=== PATIENT | female | born 1970 | race Caucasian/White ===

== ENCOUNTER 2016-12-21 16:48 | Inpatient (IN) | payer SELFPAY ==
[~2016-12-21] VITALS: Ht 162.6 cm; Wt 111.8 kg
[2016-12-21] MEDS ORDERED: FAMOTIDINE 20 MG/2 ML IVP ONE (17:00)
[2016-12-21] MEDS ORDERED: ONDANSETRON 2MG/ML, 2ML IVPush ONE ×2 (17:00→20:30)
[2016-12-21] MEDS ORDERED: SODIUM CHLORIDE FLUSH 10ML SYR IVF ONE (17:00)
[2016-12-21] MEDS ORDERED: FAMOTIDINE 20 MG/2 ML ONE (17:22)
[2016-12-21] MEDS ORDERED: ONDANSETRON 2MG/ML, 2ML ONE (17:22)
[2016-12-21 17:41] LABS: ASPARTATE AMINO TRANSFERASE 21 U/L (15-37); BLOOD UREA NITROGEN 9 mg/dL (7-18)
[2016-12-21 17:54] LABS: DIFF TOTAL CELLS COUNTED 100 CELL DIFF
[2016-12-21 17:55] LABS: VERIFY COUNTS? YES
[2016-12-21 17:56] LABS: ANISOCYTOSIS 2+; HYPOCHROMIA 1+; MICROCYTOSIS 1+; POLYCHROMASIA 2+
[2016-12-21 17:57] LABS: LARGE PLATELETS 1+
[2016-12-21] MEDS ORDERED: OMNIPAQUE 350 MG/ML, 100ML BOTTLE ONE (18:33)
[2016-12-21 19:33] LABS: PATH.CAST-FLAG NOT PRESENT; SPERM-FLAG NOT PRESENT; SRC-FLAG NOT PRESENT; XTAL-FLAG NOT PRESENT; YLC-FLAG NOT PRESENT
[2016-12-21] MEDS ORDERED: MORPHINE SULFATE 4 MG/ML, 1ML ONE (20:10)
[2016-12-21] MEDS ORDERED: FUROSEMIDE 40 MG/4 ML IVPush ONE (20:30)
[2016-12-21] MEDS ORDERED: MORPHINE SULFATE 4 MG/ML, 1ML IVPush PRN (20:30)
[2016-12-21 20:40] LABS: IS PT STATUS REG ER OR PRE ER? YES
[2016-12-21] MEDS ORDERED: ONDANSETRON 2MG/ML, 2ML IVPush PRN (21:30)
[2016-12-21] MEDS ORDERED: TRAZODONE 50MG TABLET PO PRN (21:30)
[2016-12-21] MEDS ORDERED: BISACODYL 10 MG SUPP PR PRN (21:30)
[2016-12-21] MEDS ORDERED: DOCUSATE 100 MG CAPSULE PO PRN (21:30)
[2016-12-21] MEDS ORDERED: POLYETHYLENE GLYCOL 17 GM PACKET PO PRN (21:30)
[2016-12-21] MEDS ORDERED: ACETAMINOPHEN 325 MG TABLET PO PRN (21:30)
[2016-12-21] MEDS ORDERED: LABETALOL 5MG/ML, 20ML IVPush PRN (21:30)
[2016-12-21] MEDS ORDERED: FUROSEMIDE 40 MG/4 ML ONE (21:30)
[2016-12-21] MEDS ORDERED: SODIUM CHLORIDE FLUSH 10ML SYR IVF PRN (21:30)
[2016-12-21] MEDS ORDERED: DM MED (21:45)
[2016-12-21 22:40] VITALS: BP 164/97
[2016-12-22] MEDS: ENOXAPARIN 40 MG/0.4 ML SQ SCH ×2 (00:10→21:03)
[2016-12-22] MEDS: INSULIN REGULAR 100 UNITS/ML, 3ML VIAL SQ-INSULIN SCH ×5 (00:10→21:04)
[2016-12-22 01:24] VITALS: BP 144/84
[2016-12-22 05:10] VITALS: BP 135/78
[2016-12-22] MEDS: CARVEDILOL 3.125 MG TABLET PO SCH ×2 (05:11→18:20)
[2016-12-22 06:26] LABS: ASPARTATE AMINO TRANSFERASE 25 U/L (15-37); BLOOD UREA NITROGEN 8 mg/dL (7-18)
[2016-12-22 07:22] VITALS: BP 123/78
[2016-12-22] MEDS ORDERED: FUROSEMIDE 40 MG/4 ML IV SCH (07:30)
[2016-12-22] MEDS: LISINOPRIL 10 MG TABLET PO SCH (08:14)
[2016-12-22] MEDS: ASPIRIN 81 MG TABLET CHEW PO SCH (08:14)
[2016-12-22] MEDS: FERROUS SULFATE 325 MG TABLET PO SCH ×2 (13:00→18:20)
[2016-12-22 14:17] VITALS: BP 113/70
[2016-12-22] MEDS: FUROSEMIDE 40 MG/4 ML IV SCH (18:19)
[2016-12-22 20:05] VITALS: BP 112/68
[2016-12-22] MEDS: INSULIN DETEMIR 100 UNITS/ML, PEN SQ-INSULIN SCH (21:05)
[2016-12-23 01:08] VITALS: BP 116/73
[2016-12-23 06:07] LABS: BLOOD UREA NITROGEN 11 mg/dL (7-18)
[2016-12-23 06:13] LABS: ASPARTATE AMINO TRANSFERASE 30 U/L (15-37)
[2016-12-23 06:53] VITALS: BP 118/74
[2016-12-23] MEDS: INSULIN REGULAR 100 UNITS/ML, 3ML VIAL SQ-INSULIN SCH ×4 (07:00→21:00)
[2016-12-23] MEDS: ASPIRIN 81 MG TABLET CHEW PO SCH (07:32)
[2016-12-23] MEDS: FUROSEMIDE 40 MG/4 ML IV SCH ×2 (07:32→18:04)
[2016-12-23] MEDS: LISINOPRIL 10 MG TABLET PO SCH (07:32)
[2016-12-23] MEDS: CARVEDILOL 3.125 MG TABLET PO SCH ×2 (07:32→18:03)
[2016-12-23] MEDS: FERROUS SULFATE 325 MG TABLET PO SCH ×3 (07:32→18:03)
[2016-12-23] MEDS: ASCORBIC ACID 500 MG TABLET PO SCH (07:32)
[2016-12-23] MEDS: INSULIN DETEMIR 100 UNITS/ML, PEN SQ-INSULIN SCH ×2 (07:33→22:13)
[2016-12-23 08:13] LABS: ANISOCYTOSIS 2+; HYPOCHROMIA 1+; MICROCYTOSIS 1+; POIKILOCYTOSIS 1+
[2016-12-23 10:23] LABS: ABG COLLECTION SITE RIGHT BRACHIAL
[2016-12-23 11:26] LABS: ABG COLLECTION SITE LEFT RADIAL; COLLATERAL CIRCULATION TESTING NORMAL
[2016-12-23] MEDS ORDERED: DOPAMINE/D5W PMX 250 ML IV PRN (12:00)
[2016-12-23] MEDS ORDERED: ALBUTEROL SULFATE 2.5 MG/3 ML ONE (14:45)
[2016-12-23] MEDS: ALBUTEROL SULFATE 2.5 MG/3 ML NPPB SCH ×2 (14:50→19:02)
[2016-12-23 15:09] LABS: ABG COLLECTION SITE LEFT RADIAL; COLLATERAL CIRCULATION TESTING NORMAL
[2016-12-23 16:42] LABS: ABG COLLECTION SITE RIGHT RADIAL; COLLATERAL CIRCULATION TESTING NORMAL
[2016-12-23] MEDS: ENOXAPARIN 40 MG/0.4 ML SQ SCH (21:57)
[2016-12-23] MEDS ORDERED: LABETALOL 5MG/ML, 20ML IVPush PRN (21:58)
[2016-12-24 04:00] VITALS: BP 105/56
[2016-12-24 04:29] LABS: BLOOD UREA NITROGEN 8 mg/dL (7-18)
[2016-12-24 04:32] LABS: ASPARTATE AMINO TRANSFERASE 22 U/L (15-37)
[2016-12-24] MEDS: CARVEDILOL 3.125 MG TABLET PO SCH ×2 (05:52→17:17)
[2016-12-24] MEDS: INSULIN REGULAR 100 UNITS/ML, 3ML VIAL SQ-INSULIN SCH (06:20)
[2016-12-24 06:54] LABS: ABG COLLECTION SITE LEFT RADIAL; COLLATERAL CIRCULATION TESTING NORMAL
[2016-12-24] MEDS: ALBUTEROL SULFATE 2.5 MG/3 ML NPPB SCH ×4 (07:51→18:59)
[2016-12-24] MEDS: ASPIRIN 81 MG TABLET CHEW PO SCH (09:42)
[2016-12-24] MEDS: ASCORBIC ACID 500 MG TABLET PO SCH (09:42)
[2016-12-24] MEDS: LISINOPRIL 10 MG TABLET PO SCH (09:42)
[2016-12-24] MEDS: FUROSEMIDE 40 MG/4 ML IV SCH ×2 (09:43→17:16)
[2016-12-24] MEDS: INSULIN ASPART 100 UNITS/ML, PEN SQ-INSULIN SCH ×3 (11:00→20:55)
[2016-12-24] MEDS ORDERED: DOCUSATE 100 MG CAPSULE PO PRN (14:30)
[2016-12-24] MEDS: LACTULOSE 20 GM/30 ML UDC PO SCH ×2 (15:05→20:56)
[2016-12-24] MEDS: FERROUS SULFATE 325 MG TABLET PO SCH (17:17)
[2016-12-24] MEDS: ENOXAPARIN 40 MG/0.4 ML SQ SCH (20:56)
[2016-12-25 04:00] VITALS: BP 114/59
[2016-12-25 04:22] LABS: ABG COLLECTION SITE RIGHT BRACHIAL
[2016-12-25 05:51] LABS: ASPARTATE AMINO TRANSFERASE 21 U/L (15-37); BLOOD UREA NITROGEN 10 mg/dL (7-18)
[2016-12-25] MEDS: CARVEDILOL 3.125 MG TABLET PO SCH ×2 (06:08→17:22)
[2016-12-25] MEDS: INSULIN ASPART 100 UNITS/ML, PEN SQ-INSULIN SCH ×4 (07:35→21:35)
[2016-12-25] MEDS: ALBUTEROL SULFATE 2.5 MG/3 ML NPPB SCH ×4 (08:00→19:57)
[2016-12-25] MEDS: POTASSIUM CHLORIDE 20 MEQ TAB.ER.PRT PO SCH ×2 (08:21→17:22)
[2016-12-25] MEDS: ASCORBIC ACID 500 MG TABLET PO SCH (08:21)
[2016-12-25] MEDS: LISINOPRIL 10 MG TABLET PO SCH (08:22)
[2016-12-25] MEDS: FUROSEMIDE 40 MG/4 ML IV SCH ×2 (08:22→17:22)
[2016-12-25] MEDS: LACTULOSE 20 GM/30 ML UDC PO SCH (08:22)
[2016-12-25] MEDS: ASPIRIN 81 MG TABLET CHEW PO SCH (08:22)
[2016-12-25] MEDS: FERROUS SULFATE 325 MG TABLET PO SCH ×2 (08:22→17:22)
[2016-12-25 10:57] LABS: ABG COLLECTION SITE LEFT RADIAL; COLLATERAL CIRCULATION TESTING NORMAL
[2016-12-25] MEDS: ENOXAPARIN 40 MG/0.4 ML SQ SCH (21:37)
[2016-12-26 04:00] VITALS: BP 113/54
[2016-12-26 04:28] LABS: ABG COLLECTION SITE RIGHT RADIAL; COLLATERAL CIRCULATION TESTING NORMAL
[2016-12-26] MEDS: CARVEDILOL 3.125 MG TABLET PO SCH ×2 (06:06→17:31)
[2016-12-26] MEDS: INSULIN ASPART 100 UNITS/ML, PEN SQ-INSULIN SCH ×4 (06:24→21:27)
[2016-12-26] MEDS: ALBUTEROL SULFATE 2.5 MG/3 ML NPPB SCH ×4 (07:45→19:40)
[2016-12-26] MEDS: FERROUS SULFATE 325 MG TABLET PO SCH ×2 (08:32→21:34)
[2016-12-26] MEDS: POTASSIUM CHLORIDE 20 MEQ TAB.ER.PRT PO SCH ×2 (08:33→21:34)
[2016-12-26] MEDS: FUROSEMIDE 40 MG/4 ML IV SCH ×2 (08:33→21:37)
[2016-12-26] MEDS: ASCORBIC ACID 500 MG TABLET PO SCH (08:33)
[2016-12-26] MEDS: LISINOPRIL 10 MG TABLET PO SCH (08:33)
[2016-12-26] MEDS: ASPIRIN 81 MG TABLET CHEW PO SCH (08:33)
[2016-12-26] MEDS ORDERED: PROPYLTHIOURACIL 50 MG TABLET PO SCH (10:00)
[2016-12-26] MEDS ORDERED: CHOLESTYRAMINE 4GM PACKET PO SCH (11:00)
[2016-12-26 12:10] VITALS: BP 131/77
[2016-12-26 17:30] VITALS: BP 137/80
[2016-12-26 19:50] VITALS: BP 136/80
[2016-12-26] MEDS: ENOXAPARIN 40 MG/0.4 ML SQ SCH (21:36)
[2016-12-27 02:04] VITALS: BP 118/70
[2016-12-27] MEDS: CARVEDILOL 3.125 MG TABLET PO SCH ×2 (05:01→17:33)
[2016-12-27 05:26] LABS: BLOOD UREA NITROGEN 7 mg/dL (7-18)
[2016-12-27 05:29] LABS: OCCBLD OBC PASS
[2016-12-27 05:29] LABS: ASPARTATE AMINO TRANSFERASE 26 U/L (15-37)
[2016-12-27] MEDS: ALBUTEROL SULFATE 2.5 MG/3 ML NPPB SCH ×4 (06:55→19:50)
[2016-12-27 07:30] VITALS: BP 117/69
[2016-12-27] MEDS: INSULIN ASPART 100 UNITS/ML, PEN SQ-INSULIN SCH ×4 (07:51→21:09)
[2016-12-27] MEDS: FERROUS SULFATE 325 MG TABLET PO SCH ×2 (07:52→17:33)
[2016-12-27] MEDS: FUROSEMIDE 40 MG/4 ML IV SCH (07:52)
[2016-12-27] MEDS: POTASSIUM CHLORIDE 20 MEQ TAB.ER.PRT PO SCH (07:52)
[2016-12-27] MEDS: ASPIRIN 81 MG TABLET CHEW PO SCH (09:27)
[2016-12-27] MEDS: ASCORBIC ACID 500 MG TABLET PO SCH (09:27)
[2016-12-27] MEDS: LISINOPRIL 10 MG TABLET PO SCH (09:27)
[2016-12-27 13:41] VITALS: BP 119/73
[2016-12-27] MEDS: FUROSEMIDE 40 MG TABLET PO SCH (18:17)
[2016-12-27 19:37] VITALS: BP 120/82
[2016-12-27] MEDS: ENOXAPARIN 40 MG/0.4 ML SQ SCH (21:03)
[2016-12-28 06:32] LABS: BLOOD UREA NITROGEN 10 mg/dL (7-18)
[2016-12-28] MEDS: CARVEDILOL 3.125 MG TABLET PO SCH ×2 (06:34→18:19)
[2016-12-28 06:52] VITALS: BP 125/64
[2016-12-28] MEDS: ALBUTEROL SULFATE 2.5 MG/3 ML NPPB SCH ×4 (07:15→19:12)
[2016-12-28] MEDS: INSULIN ASPART 100 UNITS/ML, PEN SQ-INSULIN SCH ×4 (07:46→21:09)
[2016-12-28] MEDS: FUROSEMIDE 40 MG TABLET PO SCH ×2 (08:01→18:19)
[2016-12-28] MEDS: FERROUS SULFATE 325 MG TABLET PO SCH ×2 (08:01→18:19)
[2016-12-28] MEDS: POTASSIUM CHLORIDE 20 MEQ TAB.ER.PRT PO SCH (08:01)
[2016-12-28] MEDS: ASCORBIC ACID 500 MG TABLET PO SCH (10:05)
[2016-12-28] MEDS: LISINOPRIL 10 MG TABLET PO SCH (10:05)
[2016-12-28] MEDS: ASPIRIN 81 MG TABLET CHEW PO SCH (10:05)
[2016-12-28 19:00] VITALS: BP 125/78
[2016-12-28] MEDS: ENOXAPARIN 40 MG/0.4 ML SQ SCH (20:53)
[2016-12-29 01:05] VITALS: BP 154/88
[2016-12-29] MEDS: CARVEDILOL 3.125 MG TABLET PO SCH ×2 (06:24→17:08)
[2016-12-29] MEDS: ALBUTEROL SULFATE 2.5 MG/3 ML NPPB SCH ×4 (06:50→20:00)
[2016-12-29] MEDS: INSULIN ASPART 100 UNITS/ML, PEN SQ-INSULIN SCH ×4 (07:51→20:25)
[2016-12-29] MEDS: FUROSEMIDE 40 MG TABLET PO SCH (07:51)
[2016-12-29] MEDS: POTASSIUM CHLORIDE 20 MEQ TAB.ER.PRT PO SCH ×2 (07:51→17:09)
[2016-12-29] MEDS: FERROUS SULFATE 325 MG TABLET PO SCH ×2 (07:51→17:09)
[2016-12-29 08:40] VITALS: BP 97/62
[2016-12-29] MEDS: ASPIRIN 81 MG TABLET CHEW PO SCH (09:29)
[2016-12-29] MEDS: LISINOPRIL 10 MG TABLET PO SCH (09:29)
[2016-12-29] MEDS: ASCORBIC ACID 500 MG TABLET PO SCH (09:29)
[2016-12-29 14:15] VITALS: BP 122/75
[2016-12-29 15:10] VITALS: BP 145/83
[2016-12-29 15:37] LABS: BLOOD UREA NITROGEN 9 mg/dL (7-18)
[2016-12-29 16:44] LABS: IS PT STATUS REG ER OR PRE ER? NO
[2016-12-29 20:00] VITALS: BP 126/77
[2016-12-29] MEDS: ENOXAPARIN 40 MG/0.4 ML SQ SCH (20:25)
[2016-12-30 02:00] VITALS: BP 125/82
[2016-12-30] MEDS: CARVEDILOL 3.125 MG TABLET PO SCH (05:37)
[2016-12-30] MEDS: INSULIN ASPART 100 UNITS/ML, PEN SQ-INSULIN SCH ×2 (07:00→12:39)
[2016-12-30 07:45] VITALS: BP 121/72
[2016-12-30] MEDS: ALBUTEROL SULFATE 2.5 MG/3 ML NPPB SCH ×3 (08:10→15:00)
[2016-12-30] MEDS: LISINOPRIL 10 MG TABLET PO SCH (08:28)
[2016-12-30] MEDS: POTASSIUM CHLORIDE 20 MEQ TAB.ER.PRT PO SCH (08:28)
[2016-12-30] MEDS: ASPIRIN 81 MG TABLET CHEW PO SCH (08:28)
[2016-12-30] MEDS: ASCORBIC ACID 500 MG TABLET PO SCH (08:28)
[2016-12-30] MEDS: FERROUS SULFATE 325 MG TABLET PO SCH (08:28)
[2016-12-30] MEDS ORDERED: FUROSEMIDE 40 MG TABLET PO SCH (09:00)
[2016-12-30 13:55] VITALS: BP 132/71
[2016-12-30] MEDS ORDERED: FERR325T20 PO (15:24)
[2016-12-30] MEDS ORDERED: ASPI-515 PO (15:24)
[2016-12-30] MEDS ORDERED: CARV3.1212 PO (15:24)
[2016-12-30] MEDS ORDERED: GLIP5TAB10 PO (15:24)
[2016-12-30] MEDS ORDERED: LISI-167 PO (15:24)
[2016-12-30] MEDS ORDERED: FURO40TA6 PO (15:24)
[2016-12-30] MEDS ORDERED: POTA20TA6 PO (15:24)
[2016-12-30] MEDS ORDERED: ASCO500T6 PO (15:24)
[2016-12-30] MEDS ORDERED: DOCU-30 PO (15:24)
[2016-12-30] MEDS ORDERED: ALBU8.5H3 INH (15:27)
[2016-12-30] MEDS ORDERED: ALBU2.5V NPPB (15:27)
== END 2016-12-30 18:14 | disposition home or self-care (01) | DRG 291 ==
LOC: ED 19:45 → EDIP 21:16 → 5SO 22:24 → CSU 12-23 11:26 → 4NOR 12-26 12:00 → 4EST 12-29 15:29
PROVIDERS: ADMIT Internal Medicine; ATTEND Internal Medicine
PROC: 02HV33Z Insertion of Infusion Device into Superior Vena Cava, Percutaneous Approach (ICD-10-PCS; principal; 2016-12-23)
PROC: B548ZZA Ultrasonography of Superior Vena Cava, Guidance (ICD-10-PCS; 2016-12-23)
PROC: 5A09357 Assistance with Respiratory Ventilation, Less than 24 Consecutive Hours, Continuous Positive Airway Pressure (ICD-10-PCS; 2016-12-23)
DX: I11.0 Hypertensive heart disease with heart failure (principal); J96.21 Acute and chronic respiratory failure with hypoxia; G93.41 Metabolic encephalopathy; J96.22 Acute and chronic respiratory failure with hypercapnia; Z68.43 Body mass index [BMI] 50.0-59.9, adult; E44.0 Moderate protein-calorie malnutrition; J98.11 Atelectasis; E87.3 Alkalosis; I50.30 Unspecified diastolic (congestive) heart failure; E66.01 Morbid (severe) obesity due to excess calories; E88.09 Other disorders of plasma-protein metabolism, not elsewhere classified; K76.0 Fatty (change of) liver, not elsewhere classified; J45.909 Unspecified asthma, uncomplicated; G47.33 Obstructive sleep apnea (adult) (pediatric); D75.1 Secondary polycythemia; D50.9 Iron deficiency anemia, unspecified; E11.65 Type 2 diabetes mellitus with hyperglycemia; Z83.3 Family history of diabetes mellitus; Z87.891 Personal history of nicotine dependence; Z98.891 History of uterine scar from previous surgery
CPT/HCPCS: 36415; 36569; 36600; 70450; 71010; 74177; 76700; 76937; 77001; 80048; 80053; 80061; 81001; 82140; 82272; 82533; 82607; 82728; 82746; 82803; 82962; 83036; 83540; 83550; 83690; 83735; 83880; 84439; 84443; 84466; 84484; 84703; 85025; 85610; 85730; 87081; 87086; 93005; 94640; 94660; 96374; 96375; C8929; J1265; J1650; J1815; J1940; J2405; J7613; Q9967; C1751

== ENCOUNTER 2018-06-29 14:54 | Inpatient (IN) | payer SELFPAY ==
[~2018-06-29] VITALS: Ht 165.1 cm; Wt 98.9 kg
[~2018-06-29 14:54] MED LIST: ALBU2.5V NPPB; ALBU8.5H8 INH; ASCO500T6 PO; ASPI-515 PO; CARV3.1212 PO; DM MED; DOCU-131 PO; FERR325T18 PO; FURO40TA6 PO; GLIP5TAB10 PO; LISI-167 PO; POTA20TA6 PO
[2018-06-29 16:35] LABS: ALBUMIN 2.4 g/dL (3.4-5.0); ANION GAP 5 mmol/L (5-15); CALCIUM 8.2 mg/dL (8.5-10.1); CHLORIDE 104 mmol/L (98-107)
[2018-06-29 16:39] LABS: CREATININE 0.74 mg/dL (0.55-1.02); TROPONIN I < 0.015 ng/mL (0.000-0.045)
[2018-06-29 17:05] LABS: MD YES
[2018-06-29 17:10] LABS: MEAN CORPUSCULAR HEMOGLOBIN 22.1 pg (27.0-34.8); MEAN CORPUSCULAR VOLUME 75.5 fL (80-100); MEAN PLATELET VOLUME 9.4 fL (7.4-10.4); PLATELET COUNT 180 x10^3/uL (130-400)
[2018-06-29 17:15] LABS: MEAN CORPUSCULAR HGB CONC 29.3 g/dL (32.4-35.8)
[2018-06-29 17:18] LABS: ANISOCYTOSIS 1+; LYMPH#(MANUAL) 1.98 x10^3/uL (1-3.4); LYMPHS% (MANUAL) 31 % (22-44); MONOS#(MANUAL) 0.64 x10^3/uL (0.3-2.7); MONOS% (MANUAL) 10 % (2-9); SEG#(MANUAL) 3.78 x10^3/uL (1.8-6.8); SEGS% (MANUAL) 59 % (42-75)
[2018-06-29 17:19] LABS: <PLATELET ESTIMATE> ADEQUATE; GIANT PLATELETS 1+; LARGE PLATELETS 2+; POLYCHROMASIA 1+
[2018-06-29] MEDS ORDERED: OMNIPAQUE 350 MG/ML, 100ML BOTTLE ONE (17:49)
[2018-06-29] MEDS ORDERED: FLUT9.9S NAS (19:24)
[2018-06-29] MEDS ORDERED: METF-163 PO (19:24)
[2018-06-29] MEDS ORDERED: LINA5TAB PO (19:24)
[2018-06-29] MEDS ORDERED: FUROSEMIDE 40 MG/4 ML IVPush ONE (19:30)
[2018-06-29] MEDS ORDERED: FUROSEMIDE 40 MG/4 ML ONE (19:54)
[2018-06-29] MEDS ORDERED: ONDANSETRON 2MG/ML, 2ML IVPush PRN (20:30)
[2018-06-29] MEDS ORDERED: GUAIFENESIN/DM 200-20MG, 10ML UDC PO PRN (20:30)
[2018-06-29] MEDS ORDERED: TEMAZEPAM 15 MG CAPSULE PO PRN (20:30)
[2018-06-29] MEDS ORDERED: DEXTROSE 4 GM TAB.CHEW PO PRN (20:30)
[2018-06-29] MEDS ORDERED: ACETAMINOPHEN 325 MG TABLET PO PRN (20:30)
[2018-06-29] MEDS ORDERED: NITROGLYCERIN 0.4 MG BOTTLE (25 TABS) SL PRN (20:30)
[2018-06-29] MEDS ORDERED: GLUCAGON 1 MG IM PRN (20:30)
[2018-06-29] MEDS ORDERED: DOCUSATE 100 MG CAPSULE PO PRN (20:30)
[2018-06-29] MEDS ORDERED: ONDANSETRON ODT 4 MG PO PRN (20:30)
[2018-06-29] MEDS ORDERED: morphine SULFATE 10 MG/ML, 1ML IVPush PRN (20:30)
[2018-06-29] MEDS ORDERED: DEXTROSE 50%, 50ML SYRINGE IVPush PRN (20:30)
[2018-06-29] MEDS ORDERED: LABETALOL 5MG/ML, 20ML IVPush PRN (20:30)
[2018-06-29] MEDS ORDERED: LABETALOL 20 MG/4 ML ONE (20:40)
[2018-06-29 20:55] LABS: HEMOGLOBIN A1C 8.5 % (4.2-6.3)
[2018-06-29] MEDS: INSULIN LISPRO 100 UNITS/ML, PEN SQ-INSULIN SCH (21:00)
[2018-06-29 21:09] LABS: TROPONIN I < 0.015 ng/mL (0.000-0.045)
[2018-06-29] MEDS ORDERED: METOPROLOL TARTRATE 50 MG TABLET ONE (21:23)
[2018-06-29] MEDS: METOPROLOL TARTRATE 50 MG TABLET PO SCH (21:24)
[2018-06-29 22:25] VITALS: BP 182/107
[2018-06-29] MEDS: ATORVASTATIN 40 MG TABLET PO SCH (23:17)
[2018-06-29] MEDS: ENOXAPARIN 40 MG/0.4 ML SQ SCH (23:17)
[2018-06-29] MEDS: LOSARTAN 50MG TABLET PO SCH (23:17)
[2018-06-29] MEDS: POTASSIUM CHLORIDE 20 MEQ TAB.ER.PRT PO SCH (23:17)
[2018-06-29] MEDS: FAMOTIDINE 20 MG TABLET PO SCH (23:17)
[2018-06-29] MEDS: SODIUM CHLORIDE FLUSH 10ML SYR IVF SCH (23:18)
[2018-06-30 00:11] VITALS: BP 161/93
[2018-06-30] MEDS: FUROSEMIDE 40 MG/4 ML IV SCH ×5 (00:11→21:11)
[2018-06-30 00:50] VITALS: BP 139/82
[2018-06-30 02:57] LABS: TROPONIN I < 0.015 ng/mL (0.000-0.045)
[2018-06-30 03:00] LABS: MEAN CORPUSCULAR HEMOGLOBIN 21.6 pg (27.0-34.8); MEAN CORPUSCULAR VOLUME 75.6 fL (80-100); MEAN PLATELET VOLUME 10.8 fL (7.4-10.4); PLATELET COUNT 162 x10^3/uL (130-400); RED CELL DISTRIBUTION WIDTH 24.8 % (9.6-15.2)
[2018-06-30 03:18] LABS: BASOPHILS # (AUTO) 0.04 x10^3/uL (0-0.1); BASOPHILS % (AUTO) 1 % (0-1); EOSINOPHILS # (AUTO) 0.06 x10^3/uL (0-0.4); EOSINOPHILS % (AUTO) 1 % (1-7); LYMPHOCYTES # (AUTO) 1.83 x10^3/uL (1-3.4); LYMPHOCYTES % (AUTO) 25 % (22-44); MD SCAN; MONOCYTES % (AUTO) 7 % (2-9); NEUTROPHILS # (AUTO) 4.95 x10^3/uL (1.8-6.8); NEUTROPHILS % (AUTO) 67 % (42-75)
[2018-06-30 03:46] LABS: ALANINE AMINOTRANSFERASE 18 U/L (12-78); ALBUMIN 2.5 g/dL (3.4-5.0); ANION GAP 6 mmol/L (5-15); CALCIUM 8.7 mg/dL (8.5-10.1); CHLORIDE 102 mmol/L (98-107); CREATININE 0.73 mg/dL (0.55-1.02)
[2018-06-30 03:50] LABS: ALKALINE PHOSPHATASE 152 U/L (45-117); BILIRUBIN,TOTAL 1.5 mg/dL (0.2-1.0); CHOL/HDL RATIO 3.7; CHOLESTEROL, TOTAL 140 mg/dL (140-239); HDL CHOL % 27 % (28-40); HDL CHOLESTEROL (DIRECT) 38 mg/dL (40-60); LDL CHOLESTEROL,CALCULATED 81 mg/dL (54-169); LDL/HDL RATIO 2.1 (0.5-3.0); TOTAL PROTEIN 6.9 g/dL (6.4-8.2); TRIGLYCERIDES 106 mg/dL (50-200); VLDL CHOLESTEROL 21 mg/dL (0-25)
[2018-06-30 04:32] VITALS: BP 138/77
[2018-06-30 05:39] LABS: MEAN CORPUSCULAR HGB CONC 24.8 g/dL (32.4-35.8); RED BLOOD COUNT 8.65 x10^6/uL (3.82-5.3)
[2018-06-30] MEDS: ASPIRIN 325 MG TABLET EC PO SCH (06:17)
[2018-06-30] MEDS: INSULIN LISPRO 100 UNITS/ML, PEN SQ-INSULIN SCH ×4 (07:26→21:00)
[2018-06-30 08:22] VITALS: BP 127/77
[2018-06-30] MEDS: METOPROLOL TARTRATE 50 MG TABLET PO SCH (09:17)
[2018-06-30] MEDS: SPIRONOLACTONE 25 MG TABLET PO SCH (09:17)
[2018-06-30] MEDS: POTASSIUM CHLORIDE 20 MEQ TAB.ER.PRT PO SCH ×2 (09:17→16:11)
[2018-06-30] MEDS: FAMOTIDINE 20 MG TABLET PO SCH ×2 (09:17→21:14)
[2018-06-30] MEDS: LOSARTAN 50MG TABLET PO SCH (09:17)
[2018-06-30] MEDS: SODIUM CHLORIDE FLUSH 10ML SYR IVF SCH ×2 (09:18→21:00)
[2018-06-30] MEDS ORDERED: MAGNESIUM SULFATE PMX 2GM/50ML 50 ML IV ONE (12:00)
[2018-06-30] MEDS: ENALAPRILAT 1.25 MG/ML, 2ML IVPush PRN ×2 (16:07→21:13)
[2018-06-30] MEDS: METOPROLOL TARTRATE 25 MG TABLET PO SCH (21:00)
[2018-06-30] MEDS: ENOXAPARIN 40 MG/0.4 ML SQ SCH (21:10)
[2018-06-30] MEDS: ATORVASTATIN 40 MG TABLET PO SCH (21:14)
[2018-07-01 04:59] LABS: ANION GAP 6 mmol/L (5-15); CALCIUM 7.9 mg/dL (8.5-10.1); CHLORIDE 98 mmol/L (98-107); CREATININE 0.64 mg/dL (0.55-1.02)
[2018-07-01 05:00] VITALS: BP 127/61
[2018-07-01 05:12] LABS: MEAN CORPUSCULAR HEMOGLOBIN 21.9 pg (27.0-34.8); MEAN CORPUSCULAR VOLUME 74.7 fL (80-100); MEAN PLATELET VOLUME 10.6 fL (7.4-10.4); PLATELET COUNT 169 x10^3/uL (130-400)
[2018-07-01] MEDS: ASPIRIN 325 MG TABLET EC PO SCH (05:30)
[2018-07-01 05:49] LABS: MEAN CORPUSCULAR HGB CONC 29.3 g/dL (32.4-35.8); RED BLOOD COUNT 8.18 x10^6/uL (3.82-5.3)
[2018-07-01 06:27] LABS: BASOPHILS # (AUTO) 0.03 x10^3/uL (0-0.1); BASOPHILS % (AUTO) 1 % (0-1); EOSINOPHILS # (AUTO) 0.07 x10^3/uL (0-0.4); EOSINOPHILS % (AUTO) 1 % (1-7); LYMPHOCYTES % (AUTO) 22 % (22-44); MD SCAN; MONOCYTES # (AUTO) 0.58 x10^3/uL (0.2-0.8); MONOCYTES % (AUTO) 9 % (2-9); NEUTROPHILS # (AUTO) 4.22 x10^3/uL (1.8-6.8); NEUTROPHILS % (AUTO) 67 % (42-75)
[2018-07-01] MEDS: INSULIN LISPRO 100 UNITS/ML, PEN SQ-INSULIN SCH ×4 (07:00→20:43)
[2018-07-01] MEDS: FUROSEMIDE 40 MG/4 ML IV SCH ×3 (10:13→20:21)
[2018-07-01] MEDS: POTASSIUM CHLORIDE 20 MEQ TAB.ER.PRT PO SCH ×2 (10:13→16:58)
[2018-07-01] MEDS: SODIUM CHLORIDE FLUSH 10ML SYR IVF SCH ×2 (10:13→20:42)
[2018-07-01] MEDS: SPIRONOLACTONE 25 MG TABLET PO SCH (10:14)
[2018-07-01] MEDS: FAMOTIDINE 20 MG TABLET PO SCH ×2 (10:14→20:22)
[2018-07-01] MEDS: METOPROLOL TARTRATE 25 MG TABLET PO SCH ×2 (10:14→20:22)
[2018-07-01] MEDS: LOSARTAN 50MG TABLET PO SCH (10:14)
[2018-07-01] MEDS: ENALAPRILAT 1.25 MG/ML, 2ML IVPush PRN (20:16)
[2018-07-01] MEDS: ENOXAPARIN 40 MG/0.4 ML SQ SCH (20:21)
[2018-07-01] MEDS: ATORVASTATIN 40 MG TABLET PO SCH (20:22)
[2018-07-02 04:00] VITALS: BP 148/70
[2018-07-02] MEDS: ENALAPRILAT 1.25 MG/ML, 2ML IVPush PRN (04:02)
[2018-07-02 04:30] LABS: MEAN CORPUSCULAR HEMOGLOBIN 21.8 pg (27.0-34.8); MEAN CORPUSCULAR VOLUME 75.7 fL (80-100); MEAN PLATELET VOLUME 10.8 fL (7.4-10.4); PLATELET COUNT 169 x10^3/uL (130-400); RED CELL DISTRIBUTION WIDTH 23.7 % (9.6-15.2)
[2018-07-02 04:34] LABS: ALANINE AMINOTRANSFERASE 14 U/L (12-78); ALBUMIN 2.4 g/dL (3.4-5.0); ANION GAP 5 mmol/L (5-15); CALCIUM 8.1 mg/dL (8.5-10.1); CHLORIDE 100 mmol/L (98-107); CREATININE 0.69 mg/dL (0.55-1.02)
[2018-07-02 04:36] LABS: ALKALINE PHOSPHATASE 133 U/L (45-117); BILIRUBIN,TOTAL 1.5 mg/dL (0.2-1.0); TOTAL PROTEIN 6.5 g/dL (6.4-8.2)
[2018-07-02 04:43] LABS: MEAN CORPUSCULAR HGB CONC 28.8 g/dL (32.4-35.8); RED BLOOD COUNT 8.37 x10^6/uL (3.82-5.3)
[2018-07-02 04:53] LABS: BASOPHILS # (AUTO) 0.02 x10^3/uL (0-0.1); BASOPHILS % (AUTO) 0 % (0-1); EOSINOPHILS % (AUTO) 2 % (1-7); LYMPHOCYTES # (AUTO) 1.89 x10^3/uL (1-3.4); LYMPHOCYTES % (AUTO) 31 % (22-44); MD SCAN; MONOCYTES % (AUTO) 10 % (2-9); NEUTROPHILS # (AUTO) 3.54 x10^3/uL (1.8-6.8); NEUTROPHILS % (AUTO) 58 % (42-75)
[2018-07-02] MEDS: ASPIRIN 325 MG TABLET EC PO SCH (06:00)
[2018-07-02] MEDS: INSULIN LISPRO 100 UNITS/ML, PEN SQ-INSULIN SCH ×4 (07:00→21:27)
[2018-07-02] MEDS: SODIUM CHLORIDE FLUSH 10ML SYR IVF SCH ×2 (08:18→21:11)
[2018-07-02] MEDS: METOPROLOL TARTRATE 25 MG TABLET PO SCH ×2 (08:19→21:11)
[2018-07-02] MEDS: LOSARTAN 50MG TABLET PO SCH (08:19)
[2018-07-02] MEDS: SPIRONOLACTONE 25 MG TABLET PO SCH (08:19)
[2018-07-02] MEDS: FAMOTIDINE 20 MG TABLET PO SCH ×2 (08:19→21:11)
[2018-07-02] MEDS: POTASSIUM CHLORIDE 20 MEQ TAB.ER.PRT PO SCH ×2 (08:19→17:19)
[2018-07-02] MEDS: FUROSEMIDE 40 MG/4 ML IV SCH ×3 (08:19→21:10)
[2018-07-02 19:38] VITALS: BP 128/77
[2018-07-02] MEDS: ENOXAPARIN 40 MG/0.4 ML SQ SCH (21:10)
[2018-07-02] MEDS: ATORVASTATIN 40 MG TABLET PO SCH (21:11)
[2018-07-03 01:45] VITALS: BP 133/79
[2018-07-03 04:58] VITALS: BP 131/75
[2018-07-03] MEDS: ASPIRIN 325 MG TABLET EC PO SCH (05:57)
[2018-07-03 06:12] LABS: CHLORIDE 98 mmol/L (98-107)
[2018-07-03 06:21] LABS: ALANINE AMINOTRANSFERASE 22 U/L (12-78); ALBUMIN 2.8 g/dL (3.4-5.0); ALKALINE PHOSPHATASE 166 U/L (45-117); ANION GAP 7 mmol/L (5-15); BILIRUBIN,TOTAL 1.8 mg/dL (0.2-1.0); CALCIUM 8.7 mg/dL (8.5-10.1); CREATININE 0.79 mg/dL (0.55-1.02)
[2018-07-03 06:43] VITALS: BP 147/94
[2018-07-03] MEDS: INSULIN LISPRO 100 UNITS/ML, PEN SQ-INSULIN SCH ×4 (07:00→19:45)
[2018-07-03 07:25] LABS: MEAN CORPUSCULAR HEMOGLOBIN 21.7 pg (27.0-34.8); MEAN CORPUSCULAR VOLUME 75.2 fL (80-100); MEAN PLATELET VOLUME 10.6 fL (7.4-10.4); PLATELET COUNT 159 x10^3/uL (130-400); RED CELL DISTRIBUTION WIDTH 22.8 % (9.6-15.2)
[2018-07-03 07:27] LABS: BASOPHILS # (AUTO) 0.03 x10^3/uL (0-0.1); BASOPHILS % (AUTO) 1 % (0-1); EOSINOPHILS # (AUTO) 0.08 x10^3/uL (0-0.4); EOSINOPHILS % (AUTO) 1 % (1-7); LYMPHOCYTES # (AUTO) 1.74 x10^3/uL (1-3.4); LYMPHOCYTES % (AUTO) 30 % (22-44); MD SCAN; MONOCYTES # (AUTO) 0.59 x10^3/uL (0.2-0.8); MONOCYTES % (AUTO) 10 % (2-9); NEUTROPHILS % (AUTO) 58 % (42-75)
[2018-07-03 07:35] LABS: MEAN CORPUSCULAR HGB CONC 28.9 g/dL (32.4-35.8); RED BLOOD COUNT 8.79 x10^6/uL (3.82-5.3)
[2018-07-03] MEDS: POTASSIUM CHLORIDE 20 MEQ TAB.ER.PRT PO SCH ×2 (09:17→17:00)
[2018-07-03] MEDS: LOSARTAN 50MG TABLET PO SCH (09:17)
[2018-07-03] MEDS: METOPROLOL TARTRATE 25 MG TABLET PO SCH ×2 (09:17→19:39)
[2018-07-03] MEDS: SPIRONOLACTONE 25 MG TABLET PO SCH (09:17)
[2018-07-03] MEDS: FAMOTIDINE 20 MG TABLET PO SCH ×2 (09:17→19:39)
[2018-07-03] MEDS: FUROSEMIDE 40 MG/4 ML IV SCH ×2 (09:17→17:12)
[2018-07-03] MEDS: SODIUM CHLORIDE FLUSH 10ML SYR IVF SCH ×2 (09:18→19:39)
[2018-07-03 12:10] VITALS: BP 132/74
[2018-07-03 19:25] VITALS: BP 124/84
[2018-07-03] MEDS: ENOXAPARIN 40 MG/0.4 ML SQ SCH (19:39)
[2018-07-03] MEDS: ATORVASTATIN 40 MG TABLET PO SCH (19:39)
[2018-07-04 01:56] VITALS: BP 156/90
[2018-07-04] MEDS: ASPIRIN 325 MG TABLET EC PO SCH (05:28)
[2018-07-04 06:19] LABS: ALBUMIN 2.6 g/dL (3.4-5.0); ANION GAP 9 mmol/L (5-15); CALCIUM 8.3 mg/dL (8.5-10.1); CHLORIDE 100 mmol/L (98-107)
[2018-07-04 06:23] LABS: ALANINE AMINOTRANSFERASE 27 U/L (12-78); ALKALINE PHOSPHATASE 152 U/L (45-117); BILIRUBIN,TOTAL 1.5 mg/dL (0.2-1.0); CREATININE 0.64 mg/dL (0.55-1.02); TOTAL PROTEIN 7.4 g/dL (6.4-8.2)
[2018-07-04 06:47] LABS: MEAN CORPUSCULAR HEMOGLOBIN 21.8 pg (27.0-34.8); MEAN CORPUSCULAR VOLUME 75.8 fL (80-100); MEAN PLATELET VOLUME 11.6 fL (7.4-10.4); PLATELET COUNT 177 x10^3/uL (130-400); RED CELL DISTRIBUTION WIDTH 23.4 % (9.6-15.2)
[2018-07-04 06:51] LABS: MEAN CORPUSCULAR HGB CONC 28.8 g/dL (32.4-35.8); RED BLOOD COUNT 9.24 x10^6/uL (3.82-5.3)
[2018-07-04] MEDS: INSULIN LISPRO 100 UNITS/ML, PEN SQ-INSULIN SCH ×4 (07:00→19:57)
[2018-07-04] MEDS ORDERED: FUROSEMIDE 40 MG/4 ML IV SCH (07:30)
[2018-07-04 07:31] VITALS: BP 124/67
[2018-07-04] MEDS: POTASSIUM CHLORIDE 20 MEQ TAB.ER.PRT PO SCH (07:54)
[2018-07-04] MEDS: FAMOTIDINE 20 MG TABLET PO SCH ×2 (07:54→19:48)
[2018-07-04] MEDS: LOSARTAN 50MG TABLET PO SCH (07:55)
[2018-07-04] MEDS: METOPROLOL TARTRATE 25 MG TABLET PO SCH ×2 (07:55→19:48)
[2018-07-04] MEDS: SODIUM CHLORIDE FLUSH 10ML SYR IVF SCH ×2 (07:55→19:58)
[2018-07-04] MEDS: SPIRONOLACTONE 25 MG TABLET PO SCH (07:57)
[2018-07-04 08:13] LABS: MD MORPH REVIEW ONLY
[2018-07-04 08:14] LABS: <PLATELET ESTIMATE> ADEQUATE; ANISOCYTOSIS 1+; BASOPHILS # (AUTO) 0.02 x10^3/uL (0-0.1); BASOPHILS % (AUTO) 0 % (0-1); EOSINOPHILS # (AUTO) 0.11 x10^3/uL (0-0.4); EOSINOPHILS % (AUTO) 2 % (1-7); GIANT PLATELETS 1+; LARGE PLATELETS 1+; LYMPHOCYTES # (AUTO) 1.38 x10^3/uL (1-3.4); LYMPHOCYTES % (AUTO) 22 % (22-44); MICROCYTOSIS 1+; MONOCYTES # (AUTO) 0.69 x10^3/uL (0.2-0.8); MONOCYTES % (AUTO) 11 % (2-9); NEUTROPHILS # (AUTO) 4.22 x10^3/uL (1.8-6.8); NEUTROPHILS % (AUTO) 66 % (42-75)
[2018-07-04 13:10] VITALS: BP 130/72
[2018-07-04] MEDS: FUROSEMIDE 40 MG TABLET PO SCH (17:24)
[2018-07-04 19:20] VITALS: BP 116/75
[2018-07-04] MEDS: ENOXAPARIN 40 MG/0.4 ML SQ SCH (19:48)
[2018-07-04] MEDS: ATORVASTATIN 40 MG TABLET PO SCH (19:48)
[2018-07-05 01:53] VITALS: BP 116/78
[2018-07-05] MEDS: ASPIRIN 325 MG TABLET EC PO SCH (05:39)
[2018-07-05] MEDS: INSULIN LISPRO 100 UNITS/ML, PEN SQ-INSULIN SCH ×3 (08:05→17:29)
[2018-07-05 08:16] VITALS: BP 123/80
[2018-07-05] MEDS ORDERED: SPIR25TA PO (09:44)
[2018-07-05] MEDS ORDERED: METO25TA35 PO (09:44)
[2018-07-05] MEDS ORDERED: ATOR40TA78 PO (09:44)
[2018-07-05] MEDS ORDERED: ASPI-650 PO (09:44)
[2018-07-05] MEDS ORDERED: FAMO20TA7 PO (09:44)
[2018-07-05] MEDS ORDERED: LOSA50TA2 PO (09:44)
[2018-07-05] MEDS: SPIRONOLACTONE 25 MG TABLET PO SCH (09:55)
[2018-07-05] MEDS: LOSARTAN 50MG TABLET PO SCH (09:55)
[2018-07-05] MEDS: POTASSIUM CHLORIDE 20 MEQ TAB.ER.PRT PO SCH (09:55)
[2018-07-05] MEDS: FAMOTIDINE 20 MG TABLET PO SCH (09:56)
[2018-07-05] MEDS: FUROSEMIDE 40 MG TABLET PO SCH ×2 (09:56→17:29)
[2018-07-05] MEDS: METOPROLOL TARTRATE 25 MG TABLET PO SCH (09:56)
[2018-07-05] MEDS: SODIUM CHLORIDE FLUSH 10ML SYR IVF SCH (09:58)
[2018-07-05 13:48] VITALS: BP_SYST 111; BP_SYST 99; BP_DIAS 58; BP_DIAS 59
== END 2018-07-05 17:56 | disposition home or self-care (01) | DRG 291 ==
LOC: ED 18:05 → EDIP 20:02 → 5SO 22:03 → CCU 06-30 12:02 → 5SO 07-02 10:26
PROVIDERS: ADMIT Internal Medicine; ATTEND Internal Medicine
PROC: 5A09357 Assistance with Respiratory Ventilation, Less than 24 Consecutive Hours, Continuous Positive Airway Pressure (ICD-10-PCS; principal; 2018-07-01)
PROC: 5A09357 Assistance with Respiratory Ventilation, Less than 24 Consecutive Hours, Continuous Positive Airway Pressure (ICD-10-PCS; 2018-07-02)
PROC: 5A09357 Assistance with Respiratory Ventilation, Less than 24 Consecutive Hours, Continuous Positive Airway Pressure (ICD-10-PCS; 2018-07-03)
PROC: 5A09357 Assistance with Respiratory Ventilation, Less than 24 Consecutive Hours, Continuous Positive Airway Pressure (ICD-10-PCS; 2018-07-04)
DX: I11.0 Hypertensive heart disease with heart failure (principal); J96.21 Acute and chronic respiratory failure with hypoxia; J96.22 Acute and chronic respiratory failure with hypercapnia; E66.2 Morbid (severe) obesity with alveolar hypoventilation; E87.2 Acidosis; G93.40 Encephalopathy, unspecified; D75.1 Secondary polycythemia; I50.33 Acute on chronic diastolic (congestive) heart failure; E11.9 Type 2 diabetes mellitus without complications; Z68.36 Body mass index [BMI] 36.0-36.9, adult; G47.33 Obstructive sleep apnea (adult) (pediatric); I16.0 Hypertensive urgency; Z91.14 Patient's other noncompliance with medication regimen; Z23 Encounter for immunization
CPT/HCPCS: 36415; 36600; 71045; 71046; 71275; 80048; 80053; 80061; 82040; 82803; 82962; 83036; 83605; 83735; 83880; 84100; 84145; 84484; 85025; 87040; 87081; 90656; 93005; 93306; 94660; 96374; 96375; G0378; J1650; J1940; Q9967; J1815; J3475

== ENCOUNTER 2019-07-05 12:42 | Inpatient (IN) | payer SELFPAY ==
[~2019-07-05] VITALS: Ht 162.6 cm; Wt 108.0 kg
[~2019-07-05 12:42] MED LIST changes: +ASPI-650 PO; +ATOR40TA78 PO; +CARV3.122 PO; +FAMO20TA7 PO; +FLUT9.9S NAS; +GUAI200T37 PO; +LINA5TAB PO; +LOSA50TA2 PO; +METF-163 PO; +METO25TA35 PO; +POTA20TA89 PO; +SPIR25TA PO; +TIOT18CA INH
--- NOTE | 2019-07-05 13:24 | NUR ---
PT CAME CO SOB, DIZZY, VOMITTING. FEEL DIZZY WHEN SHE STANDS UP. PT IS HOOKD UP TO FLOOR LAYER TILE AND IS ON 5L O2 VIA NASAL CANULLA. PT IS IN HOSPITAL BED. CALL LIGHT WITHIN REACH.
[2019-07-05 13:58] LABS: MEAN CORPUSCULAR HEMOGLOBIN 29.3 pg (27.0-34.8); MEAN CORPUSCULAR VOLUME 94.7 fL (80-100); MEAN PLATELET VOLUME 9.6 fL (7.4-10.4); PLATELET COUNT 170 x10^3/uL (130-400); RED BLOOD COUNT 7.21 x10^6/uL (3.82-5.3)
[2019-07-05 14:05] LABS: BASOPHILS # (AUTO) 0.04 x10^3/uL (0-0.1); BASOPHILS % (AUTO) 0 % (0-1); EOSINOPHILS % (AUTO) 1 % (1-7); LYMPHOCYTES # (AUTO) 1.71 x10^3/uL (1-3.4); LYMPHOCYTES % (AUTO) 12 % (22-44); MD NO; MONOCYTES # (AUTO) 1.03 x10^3/uL (0.2-0.8); MONOCYTES % (AUTO) 7 % (2-9); NEUTROPHILS # (AUTO) 11.38 x10^3/uL (1.8-6.8); NEUTROPHILS % (AUTO) 80 % (42-75)
[2019-07-05 14:07] LABS: ALBUMIN 2.5 g/dL (3.4-5.0); ANION GAP 6 mmol/L (5-15); CALCIUM 8.3 mg/dL (8.5-10.1); CHLORIDE 104 mmol/L (98-107)
[2019-07-05 14:10] LABS: ALANINE AMINOTRANSFERASE 18 U/L (12-78); ALKALINE PHOSPHATASE 170 U/L (45-117); BILIRUBIN,TOTAL 0.9 mg/dL (0.2-1.0); CREATININE 1.28 mg/dL (0.55-1.02); TOTAL PROTEIN 7.5 g/dL (6.4-8.2); TROPONIN I < 0.015 ng/mL (0.000-0.045)
--- NOTE | 2019-07-05 14:27 | NUR ---
CRITICAL LAB REPORTED TO . PT IS RESTING IN HOSPITAL BED. NO REQUESTS AT THIS TIME
[2019-07-05 15:14] LABS: D-DIMER 0.38 ug/mlFEU (0.00-0.52); PROTHROMBIN TIME 10.5 Seconds (9.6-11.5)
--- NOTE | 2019-07-05 15:38 | NUR ---
PT IS RESTING IN HOSPITAL BED. WATER PROVIDED. AWAITING LAB RESULTS. NO REQUESTS AT THIS TIME
--- NOTE | 2019-07-05 16:43 | NUR ---
PT IS IN CT
--- NOTE | 2019-07-05 17:17 | NUR ---
BREAK RN: PT LAYING ON GURNEY WITH EYES CLOSED, RESPONDS APPROP TO STAFF, NAD, COMFORT MEASURES PROVIDED, CALL LIGHT WITHIN REACH.
[2019-07-05] MEDS ORDERED: CEFTRIAXONE PMX 1GM/50ML 50 ML ONE (17:30)
[2019-07-05] MEDS ORDERED: CEFTRIAXONE PMX 1GM/50ML 50 ML IV ONE (17:30)
[2019-07-05] MEDS ORDERED: AZITHROMYCIN 500 MG in SODIUM CHLORIDE 0.9% 250 ML IV ONE (17:30)
--- NOTE | 2019-07-05 17:49 | NUR ---
REPORT RECEIVED FROM MERCED LUQUE. ASSUMED PT CARE
[2019-07-05] MEDS ORDERED: SODIUM CHLORIDE 0.9% 1,000 ML IV SCH (17:59)
[2019-07-05] MEDS ORDERED: ONDANSETRON ODT 4 MG PO PRN (18:00)
[2019-07-05] MEDS ORDERED: BISACODYL 10 MG SUPP PR PRN (18:00)
[2019-07-05] MEDS ORDERED: GUAIFENESIN/DM 200-20MG, 10ML UDC PO PRN (18:00)
[2019-07-05] MEDS ORDERED: POLYETHYLENE GLYCOL 17 GM PACKET PO PRN (18:00)
[2019-07-05] MEDS ORDERED: CEFTRIAXONE PMX 1GM/50ML 50 ML IV SCH (18:00)
[2019-07-05 19:35] VITALS: BP 120/81
[2019-07-05 21:47] VITALS: BP 102/67
[2019-07-05] MEDS: AZITHROMYCIN 500 MG in SODIUM CHLORIDE 0.9% 250 ML IV SCH (21:51)
[2019-07-05] MEDS: FAMOTIDINE 20 MG TABLET PO SCH (21:52)
[2019-07-05] MEDS: CARVEDILOL 3.125 MG TABLET PO SCH (21:52)
[2019-07-05] MEDS: SPIRONOLACTONE 25 MG TABLET PO SCH (21:52)
[2019-07-05] MEDS: FUROSEMIDE 40 MG TABLET PO SCH (21:52)
[2019-07-05] MEDS: ATORVASTATIN 40 MG TABLET PO SCH (21:52)
[2019-07-05] MEDS: HEPARIN 5,000 UNITS/ML, 1ML SQ SCH (21:53)
[2019-07-05 22:05] VITALS: BP 102/67
[2019-07-05] MEDS: ACETAMINOPHEN 325 MG TABLET PO PRN (22:39)
[2019-07-06 00:11] VITALS: BP 88/57
[2019-07-06] MEDS: HEPARIN 5,000 UNITS/ML, 1ML SQ SCH ×3 (05:32→21:41)
[2019-07-06] MEDS: ASPIRIN 325 MG TABLET EC PO SCH (05:32)
[2019-07-06 06:12] LABS: MEAN CORPUSCULAR HEMOGLOBIN 29.2 pg (27.0-34.8); MEAN CORPUSCULAR HGB CONC 30.8 g/dL (32.4-35.8); MEAN CORPUSCULAR VOLUME 94.9 fL (80-100); MEAN PLATELET VOLUME 9.6 fL (7.4-10.4); PLATELET COUNT 164 x10^3/uL (130-400); RED BLOOD COUNT 6.91 x10^6/uL (3.82-5.3); RED CELL DISTRIBUTION WIDTH 14.9 % (9.6-15.2)
[2019-07-06 06:24] LABS: ALANINE AMINOTRANSFERASE 21 U/L (12-78); ALBUMIN 2.3 g/dL (3.4-5.0); ANION GAP 6 mmol/L (5-15); CALCIUM 8.3 mg/dL (8.5-10.1); CHLORIDE 106 mmol/L (98-107); CREATININE 0.97 mg/dL (0.55-1.02)
[2019-07-06 06:26] LABS: ALKALINE PHOSPHATASE 156 U/L (45-117); BILIRUBIN,TOTAL 0.7 mg/dL (0.2-1.0); TOTAL PROTEIN 7.4 g/dL (6.4-8.2)
[2019-07-06 06:49] LABS: BASOPHILS # (AUTO) 0.03 x10^3/uL (0-0.1); BASOPHILS % (AUTO) 0 % (0-1); EOSINOPHILS # (AUTO) 0.22 x10^3/uL (0-0.4); EOSINOPHILS % (AUTO) 2 % (1-7); LYMPHOCYTES # (AUTO) 1.85 x10^3/uL (1-3.4); LYMPHOCYTES % (AUTO) 17 % (22-44); MD SCAN; MONOCYTES # (AUTO) 0.63 x10^3/uL (0.2-0.8); MONOCYTES % (AUTO) 6 % (2-9); NEUTROPHILS # (AUTO) 8.13 x10^3/uL (1.8-6.8); NEUTROPHILS % (AUTO) 75 % (42-75)
[2019-07-06 07:42] VITALS: BP 118/72
[2019-07-06] MEDS: IPRATROPIUM 0.5 MG/2.5 ML INHA NPPB SCH ×4 (08:00→20:00)
[2019-07-06] MEDS ORDERED: POTASSIUM CHLORIDE 20 MEQ TAB.ER.PRT PO SCH (09:00)
[2019-07-06] MEDS ORDERED: LOSARTAN 50MG TABLET PO SCH (09:00)
[2019-07-06] MEDS: SPIRONOLACTONE 25 MG TABLET PO SCH ×2 (09:20→20:15)
[2019-07-06] MEDS: FUROSEMIDE 40 MG TABLET PO SCH ×2 (09:21→17:21)
[2019-07-06] MEDS: metFORMIN XR 500 MG TAB.ER.24H PO SCH (09:21)
[2019-07-06] MEDS: CARVEDILOL 3.125 MG TABLET PO SCH ×2 (09:21→20:15)
[2019-07-06] MEDS: SENNA/DOCUSATE TABLET PO SCH (09:21)
[2019-07-06] MEDS ORDERED: GUAI200T11 PO (10:57)
[2019-07-06] MEDS ORDERED: SPIR25TA PO (10:58)
[2019-07-06] MEDS: FAMOTIDINE 20 MG TABLET PO SCH ×2 (13:14→21:41)
[2019-07-06 14:39] VITALS: BP 117/75
[2019-07-06 15:58] LABS: RAPID INFLUENZA A Negative (Negative); RAPID INFLUENZA B Negative (Negative)
[2019-07-06] MEDS: FLUTICASONE NASAL SPRAY 16GM NAS SCH (17:22)
[2019-07-06] MEDS: CEFTRIAXONE PMX 1GM/50ML 50 ML IV SCH (17:22)
[2019-07-06 19:15] VITALS: BP 118/82
[2019-07-06] MEDS: ATORVASTATIN 40 MG TABLET PO SCH (20:15)
[2019-07-06] MEDS: INSULIN GLARGINE 100 UNITS/ML, PEN SQ-INSULIN SCH (20:16)
[2019-07-06] MEDS: AZITHROMYCIN 500 MG in SODIUM CHLORIDE 0.9% 250 ML IV SCH (21:40)
[2019-07-07] MEDS: IPRATROPIUM 0.5 MG/2.5 ML INHA NPPB SCH ×5 (02:00→21:54)
[2019-07-07 02:05] VITALS: BP 116/76
[2019-07-07] MEDS: ASPIRIN 325 MG TABLET EC PO SCH (05:24)
[2019-07-07] MEDS: HEPARIN 5,000 UNITS/ML, 1ML SQ SCH ×3 (05:25→21:48)
[2019-07-07 07:10] VITALS: BP 122/82
[2019-07-07 08:40] LABS: MEAN CORPUSCULAR HEMOGLOBIN 28.8 pg (27.0-34.8); MEAN CORPUSCULAR HGB CONC 30.8 g/dL (32.4-35.8); MEAN CORPUSCULAR VOLUME 93.7 fL (80-100); MEAN PLATELET VOLUME 9.1 fL (7.4-10.4); PLATELET COUNT 169 x10^3/uL (130-400); RED CELL DISTRIBUTION WIDTH 15.2 % (9.6-15.2)
[2019-07-07] MEDS: LOSARTAN 25MG TABLET PO SCH (08:47)
[2019-07-07] MEDS: SENNA/DOCUSATE TABLET PO SCH (08:47)
[2019-07-07] MEDS: CARVEDILOL 3.125 MG TABLET PO SCH ×2 (08:48→21:47)
[2019-07-07] MEDS: SPIRONOLACTONE 25 MG TABLET PO SCH ×2 (08:48→21:47)
[2019-07-07] MEDS: FUROSEMIDE 40 MG TABLET PO SCH ×2 (08:48→16:44)
[2019-07-07] MEDS: metFORMIN XR 500 MG TAB.ER.24H PO SCH (08:48)
[2019-07-07] MEDS: ACETAMINOPHEN 325 MG TABLET PO PRN ×2 (08:48→21:47)
[2019-07-07 08:57] LABS: BASOPHILS # (AUTO) 0.04 x10^3/uL (0-0.1); BASOPHILS % (AUTO) 0 % (0-1); EOSINOPHILS # (AUTO) 0.21 x10^3/uL (0-0.4); EOSINOPHILS % (AUTO) 2 % (1-7); LYMPHOCYTES % (AUTO) 20 % (22-44); MD SCAN; MONOCYTES # (AUTO) 0.66 x10^3/uL (0.2-0.8); MONOCYTES % (AUTO) 7 % (2-9); NEUTROPHILS % (AUTO) 71 % (42-75)
[2019-07-07] MEDS: FAMOTIDINE 20 MG TABLET PO SCH ×2 (10:56→21:46)
[2019-07-07 11:57] VITALS: BP 103/70
[2019-07-07] MEDS: INSULIN LISPRO 100 UNITS/ML, PEN SQ-INSULIN SCH ×3 (12:18→21:48)
[2019-07-07] MEDS: FLUTICASONE NASAL SPRAY 16GM NAS SCH (16:44)
[2019-07-07] MEDS: CEFTRIAXONE PMX 1GM/50ML 50 ML IV SCH (17:40)
[2019-07-07 19:01] VITALS: BP 109/70
[2019-07-07] MEDS: AZITHROMYCIN 500 MG in SODIUM CHLORIDE 0.9% 250 ML IV SCH (21:46)
[2019-07-07] MEDS: ATORVASTATIN 40 MG TABLET PO SCH (21:47)
[2019-07-07] MEDS: INSULIN GLARGINE 100 UNITS/ML, PEN SQ-INSULIN SCH (21:49)
[2019-07-08 00:28] VITALS: BP 97/61
[2019-07-08] MEDS: IPRATROPIUM 0.5 MG/2.5 ML INHA NPPB SCH ×2 (03:10→10:41)
[2019-07-08] MEDS: ASPIRIN 325 MG TABLET EC PO SCH (06:28)
[2019-07-08] MEDS: HEPARIN 5,000 UNITS/ML, 1ML SQ SCH ×3 (06:28→23:02)
[2019-07-08 07:26] LABS: BASOPHILS # (AUTO) 0.04 x10^3/uL (0-0.1); BASOPHILS % (AUTO) 1 % (0-1); EOSINOPHILS # (AUTO) 0.16 x10^3/uL (0-0.4); EOSINOPHILS % (AUTO) 2 % (1-7); LYMPHOCYTES # (AUTO) 2.53 x10^3/uL (1-3.4); LYMPHOCYTES % (AUTO) 31 % (22-44); MD SCAN; MEAN CORPUSCULAR HEMOGLOBIN 28.9 pg (27.0-34.8); MEAN CORPUSCULAR HGB CONC 30.7 g/dL (32.4-35.8); MEAN CORPUSCULAR VOLUME 94.2 fL (80-100); MEAN PLATELET VOLUME 9.3 fL (7.4-10.4); MONOCYTES # (AUTO) 0.63 x10^3/uL (0.2-0.8); MONOCYTES % (AUTO) 8 % (2-9); NEUTROPHILS # (AUTO) 4.93 x10^3/uL (1.8-6.8); NEUTROPHILS % (AUTO) 60 % (42-75); PLATELET COUNT 182 x10^3/uL (130-400); RED BLOOD COUNT 6.85 x10^6/uL (3.82-5.3); RED CELL DISTRIBUTION WIDTH 14.4 % (9.6-15.2)
[2019-07-08 07:28] VITALS: BP 110/82
[2019-07-08] MEDS: INSULIN LISPRO 100 UNITS/ML, PEN SQ-INSULIN SCH ×4 (07:54→21:37)
[2019-07-08] MEDS: LOSARTAN 25MG TABLET PO SCH (09:11)
[2019-07-08] MEDS: SPIRONOLACTONE 25 MG TABLET PO SCH ×2 (09:11→21:36)
[2019-07-08] MEDS: CARVEDILOL 3.125 MG TABLET PO SCH ×2 (09:11→21:36)
[2019-07-08] MEDS: FUROSEMIDE 40 MG TABLET PO SCH ×2 (09:11→16:40)
[2019-07-08] MEDS: metFORMIN XR 500 MG TAB.ER.24H PO SCH (09:12)
[2019-07-08] MEDS: FAMOTIDINE 20 MG TABLET PO SCH (09:12)
[2019-07-08] MEDS: SENNA/DOCUSATE TABLET PO SCH (09:12)
[2019-07-08] MEDS: FAMOTIDINE 10 MG TAB PO SCH ×2 (09:19→21:36)
[2019-07-08 13:14] VITALS: BP 96/64
[2019-07-08] MEDS ORDERED: IPRATROPIUM 0.5 MG/2.5 ML INHA NPPB PRN (16:00)
[2019-07-08] MEDS: FLUTICASONE NASAL SPRAY 16GM NAS SCH (16:40)
[2019-07-08] MEDS: CEFTRIAXONE PMX 1GM/50ML 50 ML IV SCH (17:58)
[2019-07-08 19:04] VITALS: BP 105/59
[2019-07-08] MEDS: AZITHROMYCIN 500 MG in SODIUM CHLORIDE 0.9% 250 ML IV SCH (21:35)
[2019-07-08] MEDS: ACETAMINOPHEN 325 MG TABLET PO PRN (21:36)
[2019-07-08] MEDS: ATORVASTATIN 40 MG TABLET PO SCH (21:36)
[2019-07-08] MEDS: INSULIN GLARGINE 100 UNITS/ML, PEN SQ-INSULIN SCH (21:37)
[2019-07-09 00:35] VITALS: BP 119/72
[2019-07-09] MEDS: ASPIRIN 325 MG TABLET EC PO SCH (06:14)
[2019-07-09 07:20] VITALS: BP 119/82
[2019-07-09] MEDS: HEPARIN 5,000 UNITS/ML, 1ML SQ SCH ×3 (07:30→23:27)
[2019-07-09] MEDS: LOSARTAN 25MG TABLET PO SCH (08:02)
[2019-07-09] MEDS: SPIRONOLACTONE 25 MG TABLET PO SCH ×2 (08:02→20:22)
[2019-07-09] MEDS: FLUTICASONE NASAL SPRAY 16GM NAS SCH (08:02)
[2019-07-09] MEDS: FUROSEMIDE 40 MG TABLET PO SCH ×2 (08:02→15:47)
[2019-07-09] MEDS: FAMOTIDINE 10 MG TAB PO SCH ×2 (08:02→20:22)
[2019-07-09] MEDS: CARVEDILOL 3.125 MG TABLET PO SCH ×2 (08:02→20:23)
[2019-07-09] MEDS: metFORMIN XR 500 MG TAB.ER.24H PO SCH (08:02)
[2019-07-09] MEDS: SENNA/DOCUSATE TABLET PO SCH (08:02)
[2019-07-09] MEDS: INSULIN LISPRO 100 UNITS/ML, PEN SQ-INSULIN SCH ×4 (08:06→20:29)
[2019-07-09] MEDS: AMOXICILLIN/CLAV 875-125MG TABLET PO SCH ×2 (10:06→20:21)
[2019-07-09] MEDS: DOXYCYCLINE 100MG TABLET PO SCH ×2 (10:06→20:22)
[2019-07-09 12:35] VITALS: BP 108/75
[2019-07-09] MEDS: INSULIN GLARGINE 100 UNITS/ML, PEN SQ-INSULIN SCH ×2 (13:41→20:30)
[2019-07-09 19:11] VITALS: BP 128/83
[2019-07-09] MEDS: ATORVASTATIN 40 MG TABLET PO SCH (20:22)
[2019-07-09] MEDS ORDERED: INSULIN GLARGINE 100 UNITS/ML, PEN SQ-INSULIN SCH (21:00)
[2019-07-10 01:57] VITALS: BP 121/74
[2019-07-10 06:08] LABS: MEAN CORPUSCULAR HEMOGLOBIN 28.7 pg (27.0-34.8); MEAN CORPUSCULAR HGB CONC 31.2 g/dL (32.4-35.8); MEAN PLATELET VOLUME 9.4 fL (7.4-10.4); PLATELET COUNT 166 x10^3/uL (130-400); RED BLOOD COUNT 7.25 x10^6/uL (3.82-5.3); RED CELL DISTRIBUTION WIDTH 14.9 % (9.6-15.2)
[2019-07-10] MEDS: ASPIRIN 325 MG TABLET EC PO SCH (06:11)
[2019-07-10] MEDS: INSULIN LISPRO 100 UNITS/ML, PEN SQ-INSULIN SCH ×2 (07:00→11:49)
[2019-07-10 07:20] LABS: BASOPHILS # (AUTO) 0.02 x10^3/uL (0-0.1); BASOPHILS % (AUTO) 0 % (0-1); EOSINOPHILS % (AUTO) 1 % (1-7); LYMPHOCYTES # (AUTO) 2.32 x10^3/uL (1-3.4); LYMPHOCYTES % (AUTO) 30 % (22-44); MD SCAN; MONOCYTES % (AUTO) 8 % (2-9); NEUTROPHILS % (AUTO) 61 % (42-75)
[2019-07-10 07:27] VITALS: BP 122/81
[2019-07-10] MEDS: HEPARIN 5,000 UNITS/ML, 1ML SQ SCH ×2 (07:30→15:30)
[2019-07-10] MEDS: CARVEDILOL 3.125 MG TABLET PO SCH (07:33)
[2019-07-10] MEDS: AMOXICILLIN/CLAV 875-125MG TABLET PO SCH (07:33)
[2019-07-10] MEDS: FLUTICASONE NASAL SPRAY 16GM NAS SCH (07:33)
[2019-07-10] MEDS: metFORMIN XR 500 MG TAB.ER.24H PO SCH (07:33)
[2019-07-10] MEDS: SPIRONOLACTONE 25 MG TABLET PO SCH (07:33)
[2019-07-10] MEDS: DOXYCYCLINE 100MG TABLET PO SCH (07:34)
[2019-07-10] MEDS: LOSARTAN 25MG TABLET PO SCH (07:34)
[2019-07-10] MEDS: FUROSEMIDE 40 MG TABLET PO SCH (07:34)
[2019-07-10] MEDS: SENNA/DOCUSATE TABLET PO SCH (07:34)
[2019-07-10] MEDS: FAMOTIDINE 10 MG TAB PO SCH (07:34)
[2019-07-10] MEDS: INSULIN GLARGINE 100 UNITS/ML, PEN SQ-INSULIN SCH (07:47)
[2019-07-10 12:45] VITALS: BP 101/71
[2019-07-10] MEDS ORDERED: AMOX1TAB12 PO (14:39)
[2019-07-10] MEDS ORDERED: DOXY100T PO (14:39)
[2019-07-10] MEDS ORDERED: INSU100I11 SQ-INSULIN (14:39)
[2019-07-10] MEDS ORDERED: INSU100I13 SQ-INSULIN (14:39)
== END 2019-07-10 19:00 | disposition home or self-care (01) | DRG 871 ==
LOC: ED 13:47 → EDIP 17:23 → 4EST 18:33 → 3N 21:38
PROVIDERS: ADMIT Family Medicine; ATTEND Internal Medicine
DX: A41.9 Sepsis, unspecified organism (principal); J18.1 Lobar pneumonia, unspecified organism; J96.01 Acute respiratory failure with hypoxia; Z68.41 Body mass index [BMI] 40.0-44.9, adult; D75.1 Secondary polycythemia; E11.65 Type 2 diabetes mellitus with hyperglycemia; E66.01 Morbid (severe) obesity due to excess calories; E78.5 Hyperlipidemia, unspecified; I11.0 Hypertensive heart disease with heart failure; I50.9 Heart failure, unspecified; Z79.82 Long term (current) use of aspirin; Z83.3 Family history of diabetes mellitus
CPT/HCPCS: 36415; 36600; 81270; 84145; 87400; 99285; J7644; 71045; 71250; 80053; 82375; 82668; 82728; 82803; 82962; 83036; 83605; 83880; 84484; 85025; 85379; 85610; 85730; 87040; 93005; 94640; 99195; G0378; J0456; J0696; J1644; J1815; J7030; J7050

== ENCOUNTER 2020-04-21 22:26 | Emergency (ER) | payer SELFPAY ==
[~2020-04-21] VITALS: Ht 162.6 cm; Wt 111.0 kg
[~2020-04-21 22:26] MED LIST changes: +AMOX1TAB12 PO; -ASCO500T6 PO; +ASCO500T9 PO; +DOXY100T PO; +GUAI200T11 PO; +INSU100I11 SQ-INSULIN; +INSU100I13 SQ-INSULIN
[2020-04-21] MEDS ORDERED: HYDROcodone/APAP 5/325 TABLET ONE (23:15)
[2020-04-21] MEDS ORDERED: HYDROcodone/APAP 5/325 TABLET PO ONE (23:30)
[2020-04-22 00:34] LABS: BASOPHILS % (AUTO) 0 % (0-1); EOSINOPHILS % (AUTO) 2 % (1-7); LYMPHOCYTES % (AUTO) 30 % (22-44); MEAN CORPUSCULAR HEMOGLOBIN 25.8 pg (27.0-34.8); MEAN CORPUSCULAR HGB CONC 30.8 g/dL (32.4-35.8); MEAN PLATELET VOLUME 9.6 fL (7.4-10.4); MONOCYTES % (AUTO) 9 % (2-9); NEUTROPHILS % (AUTO) 59 % (42-75); PLATELET COUNT 159 x10^3/uL (130-400); RED CELL DISTRIBUTION WIDTH 18.6 % (9.6-15.2)
[2020-04-22 00:43] LABS: ALBUMIN 2.7 g/dL (3.4-5.0); ANION GAP 8 mmol/L (5-15); CALCIUM 8.9 mg/dL (8.5-10.1); CHLORIDE 104 mmol/L (98-107); CREATININE 1.58 mg/dL (0.55-1.02)
[2020-04-22 01:02] LABS: MD SCAN
[2020-04-22 02:00] VITALS: BP 126/75
== END 2020-04-22 02:06 ==
LOC: ED 04-22 02:00
DX: S76.212A Strain of adductor muscle, fascia and tendon of left thigh, initial encounter (principal); S76.112A Strain of left quadriceps muscle, fascia and tendon, initial encounter; M79.662 Pain in left lower leg; I11.0 Hypertensive heart disease with heart failure; I50.9 Heart failure, unspecified; E11.9 Type 2 diabetes mellitus without complications; X58.XXXA Exposure to other specified factors, initial encounter; Y93.89 Activity, other specified; Y92.89 Other specified places as the place of occurrence of the external cause; Y99.8 Other external cause status
CPT/HCPCS: 36415; 80048; 82040; 85025; 99284